=== PATIENT | male | born 1990 | race Caucasian/White ===

== ENCOUNTER 2019-05-26 14:02 | Outpatient (CLI) | payer OTHER, SELFPAY ==
[2019-05-26 14:17] LABS: Basophils Absolute Auto 0.04 K/mm3 (0.00-0.10); Basophils Percent Auto 0.8 % (0.0-1.0); Eosinophils Percent Auto 8.2 % (1.0-6.0); Hematocrit 40.1 % (40.0-54.0); Hemoglobin 14.6 g/dL (14.0-18.0); Immature Granulocyte Absolute 0.02 K/mm3 (0.00-0.00); Immature Granulocyte Percent A 0.4 % (0.0-0.0); Lymphocytes Absolute Auto 1.21 K/mm3 (1.10-4.50); Lymphocytes Percent Auto 24.8 % (18.0-42.0); Mean Corpuscular HGB Conc 36.4 g/dL (32.0-36.0); Mean Corpuscular Hemoglobin 31.1 pg (27.0-31.0); Mean Corpuscular Volume 85.3 fL (78.0-102.0); Mean Platelet Volume 10.2 fl (8.7-11.0); Monocytes Percent Auto 8.2 % (2.0-11.0); Neutrophils Absolute Auto 2.8 K/mm3 (1.7-7.2); Neutrophils Percent Auto 57.6 % (50.0-70.0); Platelet Count Result 191 K/mm3 (150-420); Red Cell Distribution Width 11.7 % (11.6-14.4); White Blood Count 4.9 K/mm3 (4.8-10.8)
[2019-05-26 14:47] LABS: Creatinine Urine 111.04 mg/dL (40-278)
[2019-05-26 14:48] LABS: MALB Creatinine Ratio 213.3 mg/g (0-30); Microalbumin Urine Random 236.9 mg/L
[2019-05-26 15:10] LABS: Albumin Level 3.8 g/dL (3.4-5.0); Anion Gap 11.7 mmol/L (7-16); Blood Urea Nitrogen 41 mg/dL (7-18); Calcium 9.2 mg/dL (8.5-10.1); Carbon Dioxide 27 mmol/L (21-32); Chloride 105 mmol/L (98-108); Cholesterol 278 mg/dL (0-200); Estimated Glomerular Filt Rate 34; Glucose 83 mg/dL (70-99); HDL Direct 62 mg/dL (40-60); LDL Cholesterol Calculated 196 mg/dL (<130); Osmolality Calculated 295 mOsm/kg (285-295); Phosphorus 3.9 mg/dL (2.6-4.7); Potassium 5.7 mmol/L (3.5-5.1); Sodium 138 mmol/L (136-145); Triglycerides 101 mg/dL (0-150)
[2019-05-30 12:42] LABS: Parathyroid Intact 56 pg/mL (14-64)
== END 2019-05-26 14:03 | disposition home or self-care (01) ==
DX: N18.3 Chronic kidney disease, stage 3 (moderate) (principal)
CPT/HCPCS: 36415; 80061; 80069; 82043; 83970; 85025

== ENCOUNTER 2019-06-28 16:45 | Outpatient (CLI) | payer OTHER, SELFPAY ==
[2019-06-28 17:52] LABS: Anion Gap 11.6 mmol/L (7-16); Blood Urea Nitrogen 38 mg/dL (7-18); Calcium 9.1 mg/dL (8.5-10.1); Carbon Dioxide 30 mmol/L (21-32); Chloride 105 mmol/L (98-108); Estimated Glomerular Filt Rate 37; Glucose 81 mg/dL (70-99); Osmolality Calculated 302 mOsm/kg (285-295); Potassium 4.6 mmol/L (3.5-5.1); Sodium 142 mmol/L (136-145)
== END 2019-06-28 16:46 | disposition home or self-care (01) ==
DX: N02.8 Recurrent and persistent hematuria with other morphologic changes (principal)
CPT/HCPCS: 36415; 80048

== ENCOUNTER 2020-03-13 12:44 | Outpatient (CLI) | payer OTHER, SELFPAY ==
[2020-03-13 13:07] LABS: Hematocrit 39.2 % (40.0-54.0); Hemoglobin 13.7 g/dL (14.0-18.0); Mean Corpuscular HGB Conc 34.9 g/dL (32.0-36.0); Mean Corpuscular Hemoglobin 30.5 pg (27.0-31.0); Mean Corpuscular Volume 87.3 fL (78.0-102.0); Platelet Count Result 164 K/mm3 (150-420); Red Blood Count 4.49 M/mm3 (4.70-6.10); Red Cell Distribution Width 11.4 % (11.6-14.4); White Blood Count 4.7 K/mm3 (4.8-10.8)
[2020-03-13 13:11] LABS: Add Urine Microscopic? YES; Appearance Urine Clear (Clear); Bilirubin Urine Negative (Negative); Blood Urine 2+ (Negative); Color Urine Yellow (Yellow); Glucose Urine UA Negative (Negative); Ketones Urine Negative (Negative); Leukocyte Esterase Ur Negative LEU/UL (Negative); Nitrate Urine Negative (Negative); Protein Urine 2+ (Negative); Urobilinogen Urine 0.2 mg/dL (0.2-1.0)
[2020-03-13 13:18] LABS: WBC Urine 0-3 /hpf (0-3)
[2020-03-13 13:19] LABS: Bacteria Urine None seen /hpf
[2020-03-13 13:27] LABS: Creatinine Urine 92.26 mg/dL (40-278); Ur Ttl Prot Creatinine Ratio 2.57 mg/mg (0-0.20)
[2020-03-13 13:31] LABS: Band Neutrophils Percent 0 % (0-6); Basophils Absolute Manual 0.04 K/mm3 (0-0.1); Basophils Percent Manual 1 % (0-1); Eosinophils Absolute Manual 0.42 K/mm3 (0.02-0.5); Eosinophils Percent Manual 9 % (1-6); Lymphocytes Absolute Manual 1.08 K/mm3 (1.1-4.5); Lymphocytes Percent Manual 23 % (18-44); Monocytes Absolute Manual 0.23 K/mm3 (0.1-0.90); Monocytes Percent Manual 5 % (3-9); Neutrophils Absolute Manual 2.91 K/mm3 (1.3-6.7); Neutrophils Percent Manual 62 % (46-73); Total Cells Counted 100
[2020-03-13 13:32] LABS: Platelet Estimate Adequate (Adequate)
[2020-03-13 13:42] LABS: Albumin Level 3.5 g/dL (3.4-5.0); Anion Gap 9 mmol/L (8-16); Blood Urea Nitrogen 25 mg/dL (7-18); Calcium 9.1 mg/dL (8.5-10.1); Carbon Dioxide 28 mmol/L (21-32); Chloride 103 mmol/L (98-108); Estimated Glomerular Filt Rate 34; Glucose 91 mg/dL (70-99); Osmolality Calculated 294 mOsm/kg (285-295); Phosphorus 3.6 mg/dL (2.6-4.7); Potassium 4.4 mmol/L (3.5-5.1); Sodium 140 mmol/L (136-145)
[2020-03-15 13:38] LABS: Parathyroid Intact 56 pg/mL (14-64)
[2020-03-19 02:02] LABS: Vitamin D 25 Hydroxy 29 ng/mL (30-100)
== END 2020-03-13 12:45 | disposition home or self-care (01) ==
LOC: CHSLAB 12:54
DX: N02.8 Recurrent and persistent hematuria with other morphologic changes (principal); I10 Essential (primary) hypertension; R80.1 Persistent proteinuria, unspecified; E55.9 Vitamin D deficiency, unspecified
CPT/HCPCS: 36415; 80069; 81001; 82306; 82570; 83970; 84156; 85025

== ENCOUNTER 2020-04-25 11:55 | Outpatient (CLI) | payer OTHER, SELFPAY ==
[2020-04-25 12:14] LABS: Creatinine Urine 107.17 mg/dL (40-278); Ur Ttl Prot Creatinine Ratio 0.86 mg/mg (0-0.20)
[2020-04-25 13:33] LABS: Albumin Level 3.8 g/dL (3.4-5.0); Anion Gap 8 mmol/L (8-16); Blood Urea Nitrogen 38 mg/dL (7-18); Calcium 9.1 mg/dL (8.5-10.1); Carbon Dioxide 30 mmol/L (21-32); Chloride 104 mmol/L (98-108); Estimated Glomerular Filt Rate 34; Glucose 80 mg/dL (70-99); Osmolality Calculated 302 mOsm/kg (285-295); Phosphorus 3.9 mg/dL (2.6-4.7); Potassium 4.7 mmol/L (3.5-5.1); Sodium 142 mmol/L (136-145)
== END 2020-04-25 11:56 | disposition home or self-care (01) ==
DX: N02.8 Recurrent and persistent hematuria with other morphologic changes (principal); R80.8 Other proteinuria; N18.32 Chronic kidney disease, stage 3b
CPT/HCPCS: 36415; 80069; 82570; 84156

== ENCOUNTER 2020-11-13 15:02 | Outpatient (CLI) | payer OTHER, SELFPAY ==
[2020-11-13 15:21] LABS: Add Urine Microscopic? YES; Appearance Urine Clear (Clear); Bilirubin Urine Negative (Negative); Blood Urine 2+ (Negative); Color Urine Light Yellow (Yellow); Glucose Urine UA Negative (Negative); Hematocrit 35.1 % (40.0-54.0); Hemoglobin 12.4 g/dL (14.0-18.0); Ketones Urine Negative (Negative); Leukocyte Esterase Ur Negative (Negative); Mean Corpuscular HGB Conc 35.3 g/dL (32.0-36.0); Mean Corpuscular Hemoglobin 30.9 pg (27.0-31.0); Mean Corpuscular Volume 87.5 fL (78.0-102.0); Mean Platelet Volume 9.6 fl (8.7-11.0); Nitrate Urine Negative (Negative); Platelet Count Result 149 K/mm3 (150-420); Protein Urine 2+ (Negative); Red Blood Count 4.01 M/mm3 (4.70-6.10); Red Cell Distribution Width 11.2 % (11.6-14.4); Specific Grav Ur >= 1.030 (1.010-1.020); Urobilinogen Urine 0.2 mg/dL (0.2-1.0); White Blood Count 5.2 K/mm3 (4.8-10.8); pH Urine 5.5 (5.0-8.0)
[2020-11-13 15:29] LABS: Ur Ttl Prot Creatinine Ratio 1.07 mg/mg (0-0.20)
[2020-11-13 15:37] LABS: WBC Urine None seen /hpf (0-3)
[2020-11-13 15:42] LABS: Squamous Epithelial Cell Urine Rare /hpf (Few)
[2020-11-13 15:43] LABS: Bacteria Urine Trace /hpf
[2020-11-13 15:51] LABS: Albumin Level 3.7 g/dL (3.4-5.0); Anion Gap 8 mmol/L (8-16); Band Neutrophils Percent 0 % (0-6); Basophils Percent Manual 0 % (0-1); Blood Urea Nitrogen 36 mg/dL (7-18); Calcium 8.7 mg/dL (8.5-10.1); Carbon Dioxide 27 mmol/L (21-32); Chloride 106 mmol/L (98-108); Eosinophils Absolute Manual 0.67 K/mm3 (0.02-0.5); Eosinophils Percent Manual 13 % (1-6); Estimated Glomerular Filt Rate 37; Glucose 83 mg/dL (70-99); Lymphocytes Absolute Manual 1.35 K/mm3 (1.1-4.5); Lymphocytes Percent Manual 26 % (18-44); Monocytes Percent Manual 4 % (3-9); Neutrophils Absolute Manual 2.96 K/mm3 (1.3-6.7); Neutrophils Percent Manual 57 % (46-73); Osmolality Calculated 299 mOsm/kg (285-295); Phosphorus 4.2 mg/dL (2.6-4.7); Platelet Estimate Adequate (Adequate); Potassium 4.4 mmol/L (3.5-5.1); Sodium 141 mmol/L (136-145); Total Cells Counted 100
[2020-11-17 11:19] LABS: Parathyroid Intact 61 pg/mL (14-64)
== END 2020-11-13 15:03 | disposition home or self-care (01) ==
LOC: CHSLAB 15:10
DX: N02.8 Recurrent and persistent hematuria with other morphologic changes (principal); R80.8 Other proteinuria; N18.32 Chronic kidney disease, stage 3b; E87.5 Hyperkalemia; R80.1 Persistent proteinuria, unspecified; E55.9 Vitamin D deficiency, unspecified; Z00.00 Encounter for general adult medical examination without abnormal findings
CPT/HCPCS: 36415; 80069; 81001; 82306; 82570; 82652; 83970; 84156; 85025

== ENCOUNTER 2021-05-20 12:59 | Outpatient (CLI) | payer OTHER, SELFPAY ==
[2021-05-20 13:25] LABS: Add Urine Microscopic? YES; Appearance Urine Clear (Clear); Bilirubin Urine Negative (Negative); Blood Urine 1+ (Negative); Color Urine Yellow (Yellow); Glucose Urine UA Negative (Negative); Ketones Urine Negative (Negative); Leukocyte Esterase Ur Negative LEU/UL (Negative); Nitrate Urine Negative (Negative); Protein Urine 2+ (Negative); Urobilinogen Urine 0.2 mg/dL (0.2-1.0); pH Urine 5.5 (5.0-8.0)
[2021-05-20 13:30] LABS: Creatinine Urine 111.02 mg/dL (40-278); Total Protein Urine Random 113.3 mg/dL (0.0-11.9); Ur Ttl Prot Creatinine Ratio 1.02 mg/mg (0-0.20)
[2021-05-20 13:52] LABS: Bacteria Urine Trace /hpf; Other Sediment Urine Spermatazoa /hpf; WBC Urine None seen /hpf (0-3)
[2021-05-20 13:54] LABS: Albumin Level 3.8 g/dL (3.4-5.0); Anion Gap 9 mmol/L (8-16); Blood Urea Nitrogen 34 mg/dL (7-18); Calcium 8.9 mg/dL (8.5-10.1); Carbon Dioxide 26 mmol/L (21-32); Chloride 106 mmol/L (98-108); Estimated Glomerular Filt Rate 29; Glucose 89 mg/dL (70-99); Osmolality Calculated 298 mOsm/kg (285-295); Phosphorus 3.8 mg/dL (2.6-4.7); Potassium 5.7 mmol/L (3.5-5.1); Sodium 141 mmol/L (136-145)
[2021-05-23 14:07] LABS: Parathyroid Intact 56 pg/mL (14-64)
== END 2021-05-20 13:00 | disposition home or self-care (01) ==
LOC: CHSLAB 13:04
DX: N02.8 Recurrent and persistent hematuria with other morphologic changes (principal)
CPT/HCPCS: 36415; 80069; 81001; 82570; 83970; 84156

== ENCOUNTER 2021-06-03 11:00 | Outpatient (CLI) | payer OTHER, SELFPAY ==
[2021-06-03 11:13] LABS: Basophils Absolute Auto 0.04 K/mm3 (0.00-0.10); Basophils Percent Auto 0.9 % (0.0-1.0); Eosinophils Percent Auto 6.8 % (1.0-6.0); Hematocrit 36.6 % (40.0-54.0); Hemoglobin 12.8 g/dL (14.0-18.0); Immature Granulocyte Absolute 0.01 K/mm3 (0.00-0.00); Immature Granulocyte Percent A 0.2 % (0.0-0.0); Lymphocytes Absolute Auto 1.41 K/mm3 (1.10-4.50); Lymphocytes Percent Auto 31.8 % (18.0-42.0); Mean Corpuscular Volume 88.6 fL (78.0-102.0); Mean Platelet Volume 9.9 fl (8.7-11.0); Monocytes Absolute Auto 0.36 K/mm3 (0.10-0.90); Monocytes Percent Auto 8.1 % (2.0-11.0); Neutrophils Absolute Auto 2.3 K/mm3 (1.7-7.2); Neutrophils Percent Auto 52.2 % (50.0-70.0); Platelet Count Result 156 K/mm3 (150-420); Red Blood Count 4.13 M/mm3 (4.70-6.10); Red Cell Distribution Width 11.4 % (11.6-14.4); White Blood Count 4.4 K/mm3 (4.8-10.8)
[2021-06-03 11:19] LABS: Add Urine Microscopic? YES; Appearance Urine Clear (Clear); Bilirubin Urine Negative (Negative); Blood Urine 2+ (Negative); Color Urine Light Yellow (Yellow); Glucose Urine UA Negative (Negative); Ketones Urine Negative (Negative); Leukocyte Esterase Ur Negative (Negative); Nitrate Urine Negative (Negative); Protein Urine 2+ (Negative); Urobilinogen Urine 0.2 mg/dL (0.2-1.0)
[2021-06-03 11:27] LABS: Bacteria Urine None seen /hpf; WBC Urine None seen /hpf (0-3)
[2021-06-03 11:38] LABS: Creatinine Urine 118.75 mg/dL (40-278); Total Protein Urine Random 124.7 mg/dL (0.0-11.9); Ur Ttl Prot Creatinine Ratio 1.05 mg/mg (0-0.20)
[2021-06-03 12:02] LABS: Albumin Level 3.7 g/dL (3.4-5.0); Anion Gap 8 mmol/L (8-16); Blood Urea Nitrogen 45 mg/dL (7-18); Calcium 8.8 mg/dL (8.5-10.1); Carbon Dioxide 25 mmol/L (21-32); Chloride 104 mmol/L (98-108); Estimated Glomerular Filt Rate 29; Glucose 83 mg/dL (70-99); Osmolality Calculated 294 mOsm/kg (285-295); Potassium 4.9 mmol/L (3.5-5.1); Sodium 137 mmol/L (136-145)
== END 2021-06-03 11:01 | disposition home or self-care (01) ==
LOC: CHSLAB 11:04
DX: N02.8 Recurrent and persistent hematuria with other morphologic changes (principal)
CPT/HCPCS: 36415; 80069; 81001; 82570; 84156; 85025

== ENCOUNTER 2021-06-28 15:35 | Outpatient (CLI) | payer OTHER, SELFPAY ==
[2021-06-28 15:55] LABS: Basophils Absolute Auto 0.04 K/mm3 (0.00-0.10); Basophils Percent Auto 0.9 % (0.0-1.0); Eosinophils Absolute Auto 0.35 K/mm3 (0.02-0.50); Eosinophils Percent Auto 8.2 % (1.0-6.0); Hematocrit 36.3 % (40.0-54.0); Hemoglobin 12.7 g/dL (14.0-18.0); Immature Granulocyte Absolute 0.03 K/mm3 (0.00-0.00); Immature Granulocyte Percent A 0.7 % (0.0-0.0); Lymphocytes Absolute Auto 1.32 K/mm3 (1.10-4.50); Lymphocytes Percent Auto 30.8 % (18.0-42.0); Mean Corpuscular Hemoglobin 30.9 pg (27.0-31.0); Mean Corpuscular Volume 88.3 fL (78.0-102.0); Mean Platelet Volume 9.7 fl (8.7-11.0); Monocytes Absolute Auto 0.29 K/mm3 (0.10-0.90); Monocytes Percent Auto 6.8 % (2.0-11.0); Neutrophils Absolute Auto 2.3 K/mm3 (1.7-7.2); Neutrophils Percent Auto 52.6 % (50.0-70.0); Platelet Count Result 172 K/mm3 (150-420); Red Blood Count 4.11 M/mm3 (4.70-6.10); Red Cell Distribution Width 11.6 % (11.6-14.4); White Blood Count 4.3 K/mm3 (4.8-10.8)
[2021-06-28 16:09] LABS: Albumin Level 3.3 g/dL (3.4-5.0); Anion Gap 6 mmol/L (8-16); Blood Urea Nitrogen 35 mg/dL (7-18); Calcium 8.8 mg/dL (8.5-10.1); Carbon Dioxide 29 mmol/L (21-32); Chloride 104 mmol/L (98-108); Estimated Glomerular Filt Rate 32; Glucose 73 mg/dL (70-99); Osmolality Calculated 295 mOsm/kg (285-295); Phosphorus 3.7 mg/dL (2.6-4.7); Potassium 5.2 mmol/L (3.5-5.1); Sodium 139 mmol/L (136-145)
[2021-06-28 16:11] LABS: Partial Thromboplastin Time 25.9 SEC (23.90-30.70); Prothrombin Time 10.9 Seconds (9.50-12.10)
[2021-06-28 16:30] LABS: SARS-CoV-2 RNA PCR Negative (Negative)
[2021-07-03 15:06] LABS: Testosterone Free 105.5 pg/mL (35.0-155.0); Testosterone Total 544 ng/dL (250-1100)
== END 2021-06-28 15:36 | disposition home or self-care (01) ==
LOC: CHSLAB 15:38
DX: Z01.812 Encounter for preprocedural laboratory examination (principal); Z20.822 Contact with and (suspected) exposure to COVID-19; N02.8 Recurrent and persistent hematuria with other morphologic changes; R80.1 Persistent proteinuria, unspecified; N18.32 Chronic kidney disease, stage 3b; E87.5 Hyperkalemia; R86.1 Abnormal level of hormones in specimens from male genital organs; D63.1 Anemia in chronic kidney disease
CPT/HCPCS: 36415; 80069; 84402; 84403; 85025; 85610; 85730; C9803; U0003; U0005

== ENCOUNTER 2021-08-14 16:19 | Outpatient (CLI) | payer OTHER, SELFPAY ==
[2021-08-14 16:41] LABS: Hematocrit 37.9 % (40.0-54.0); Hemoglobin 12.9 g/dL (14.0-18.0); Mean Corpuscular Hemoglobin 30.7 pg (27.0-31.0); Mean Corpuscular Volume 90.2 fL (78.0-102.0); Mean Platelet Volume 10.4 fl (8.7-11.0); Platelet Count Result 175 K/mm3 (150-420); Red Cell Distribution Width 11.7 % (11.6-14.4); White Blood Count 5.7 K/mm3 (4.8-10.8)
[2021-08-14 16:42] LABS: Add Urine Microscopic? YES; Appearance Urine Clear (Clear); Bilirubin Urine Negative (Negative); Blood Urine 2+ (Negative); Color Urine Light Yellow (Yellow); Glucose Urine UA Negative (Negative); Ketones Urine Negative (Negative); Leukocyte Esterase Ur Negative LEU/UL (Negative); Nitrate Urine Negative (Negative); Protein Urine 2+ (Negative); Urobilinogen Urine 0.2 mg/dL (0.2-1.0)
[2021-08-14 16:48] LABS: Squamous Epithelial Cell Urine Rare /hpf (Few); WBC Urine None seen /hpf (0-3)
[2021-08-14 16:49] LABS: Bacteria Urine Trace /hpf
[2021-08-14 16:55] LABS: Creatinine Urine 140.86 mg/dL (40-278); Total Protein Urine Random 112.5 mg/dL (0.0-11.9)
[2021-08-14 17:10] LABS: Albumin Level 3.5 g/dL (3.4-5.0); Anion Gap 4 mmol/L (8-16); Blood Urea Nitrogen 43 mg/dL (7-18); Calcium 8.9 mg/dL (8.5-10.1); Carbon Dioxide 27 mmol/L (21-32); Chloride 104 mmol/L (98-108); Estimated Glomerular Filt Rate 22; Glucose 81 mg/dL (70-99); Osmolality Calculated 289 mOsm/kg (285-295); Phosphorus 3.8 mg/dL (2.6-4.7); Potassium 5.3 mmol/L (3.5-5.1); Sodium 135 mmol/L (136-145)
[2021-08-14 17:16] LABS: Band Neutrophils Percent 0 % (0-6); Basophils Percent Manual 0 % (0-1); Eosinophils Absolute Manual 0.74 K/mm3 (0.02-0.5); Eosinophils Percent Manual 13 % (1-6); Lymphocytes Percent Manual 37 % (18-44); Monocytes Absolute Manual 0.17 K/mm3 (0.1-0.90); Monocytes Percent Manual 3 % (3-9); Neutrophils Absolute Manual 2.67 K/mm3 (1.3-6.7); Neutrophils Percent Manual 47 % (46-73); Platelet Estimate Adequate (Adequate); Total Cells Counted 100
== END 2021-08-14 16:20 | disposition home or self-care (01) ==
LOC: CHSLAB 16:27
DX: N02.8 Recurrent and persistent hematuria with other morphologic changes (principal); N18.32 Chronic kidney disease, stage 3b; R80.1 Persistent proteinuria, unspecified; E87.5 Hyperkalemia
CPT/HCPCS: 36415; 80069; 81001; 82570; 84156; 85025

== ENCOUNTER 2021-10-21 11:37 | Outpatient (CLI) | payer OTHER, SELFPAY ==
[2021-10-21 12:33] LABS: Hematocrit 34.6 % (40.0-54.0); Mean Corpuscular HGB Conc 34.7 g/dL (32.0-36.0); Mean Corpuscular Hemoglobin 30.8 pg (27.0-31.0); Mean Corpuscular Volume 88.7 fL (78.0-102.0); Mean Platelet Volume 10.6 fl (8.7-11.0); Platelet Count Result 154 K/mm3 (150-420); White Blood Count 5.7 K/mm3 (4.8-10.8)
[2021-10-24 18:27] LABS: Vitamin D 25 Hydroxy 30 ng/mL (30-100)
[2021-10-26 14:23] LABS: Parathyroid Intact 40 pg/mL (14-64)
== END 2021-10-21 11:38 | disposition home or self-care (01) ==
DX: N02.8 Recurrent and persistent hematuria with other morphologic changes (principal); N18.32 Chronic kidney disease, stage 3b
CPT/HCPCS: 36415; 82306; 83970; 85027

== ENCOUNTER 2022-02-27 11:48 | Outpatient (CLI) | payer OTHER, SELFPAY ==
[2022-02-27 12:12] LABS: Add Urine Microscopic? YES; Appearance Urine Clear (Clear); Basophils Absolute Auto 0.04 K/mm3 (0.00-0.10); Basophils Percent Auto 0.8 % (0.0-1.0); Bilirubin Urine Negative (Negative); Blood Urine 2+ (Negative); Color Urine Light Yellow (Yellow); Eosinophils Absolute Auto 0.19 K/mm3 (0.02-0.50); Eosinophils Percent Auto 3.9 % (1.0-6.0); Glucose Urine UA Negative (Negative); Hematocrit 36.1 % (40.0-54.0); Hemoglobin 12.5 g/dL (14.0-18.0); Immature Granulocyte Absolute 0.02 K/mm3 (0.00-0.00); Immature Granulocyte Percent A 0.4 % (0.0-0.0); Ketones Urine Negative (Negative); Leukocyte Esterase Ur Negative (Negative); Lymphocytes Absolute Auto 0.88 K/mm3 (1.10-4.50); Lymphocytes Percent Auto 18.1 % (18.0-42.0); Mean Corpuscular HGB Conc 34.6 g/dL (32.0-36.0); Mean Corpuscular Hemoglobin 30.9 pg (27.0-31.0); Mean Corpuscular Volume 89.4 fL (78.0-102.0); Monocytes Absolute Auto 0.23 K/mm3 (0.10-0.90); Monocytes Percent Auto 4.7 % (2.0-11.0); Neutrophils Absolute Auto 3.5 K/mm3 (1.7-7.2); Neutrophils Percent Auto 72.1 % (50.0-70.0); Nitrate Urine Negative (Negative); Platelet Count Result 141 K/mm3 (150-420); Protein Urine 2+ (Negative); Red Blood Count 4.04 M/mm3 (4.70-6.10); Red Cell Distribution Width 11.8 % (11.6-14.4); Specific Grav Ur 1.015 (1.010-1.020); Urobilinogen Urine 0.2 mg/dL (0.2-1.0); White Blood Count 4.9 K/mm3 (4.8-10.8)
[2022-02-27 12:17] LABS: Creatinine Urine 89.77 mg/dL (40-278); Total Protein Urine Random 151.6 mg/dL (0.0-11.9); Ur Ttl Prot Creatinine Ratio 1.69 mg/mg (0-0.20)
[2022-02-27 12:19] LABS: Bacteria Urine None seen /hpf; Squamous Epithelial Cell Urine Rare /hpf (Few); WBC Urine None seen /hpf (0-3)
[2022-02-27 13:09] LABS: Albumin Level 3.5 g/dL (3.4-5.0); Anion Gap 5 mmol/L (8-16); Blood Urea Nitrogen 38 mg/dL (7-18); Calcium 8.4 mg/dL (8.5-10.1); Carbon Dioxide 29 mmol/L (21-32); Chloride 106 mmol/L (98-108); Estimated Glomerular Filt Rate 26; Glucose 81 mg/dL (70-99); Osmolality Calculated 298 mOsm/kg (285-295); Phosphorus 2.8 mg/dL (2.6-4.7); Sodium 140 mmol/L (136-145)
== END 2022-02-27 11:49 | disposition home or self-care (01) ==
LOC: CHSLAB 11:54
DX: N02.8 Recurrent and persistent hematuria with other morphologic changes (principal); N18.32 Chronic kidney disease, stage 3b; R80.1 Persistent proteinuria, unspecified; E87.5 Hyperkalemia
CPT/HCPCS: 36415; 80069; 81001; 82570; 84156; 85025

== ENCOUNTER 2022-04-25 11:28 | Outpatient (CLI) | payer OTHER, SELFPAY ==
[2022-04-25 12:16] LABS: Basophils Absolute Auto 0.04 K/mm3 (0.00-0.10); Basophils Percent Auto 0.8 % (0.0-1.0); Eosinophils Absolute Auto 0.19 K/mm3 (0.02-0.50); Eosinophils Percent Auto 3.8 % (1.0-6.0); Hematocrit 37.4 % (40.0-54.0); Hemoglobin 12.9 g/dL (14.0-18.0); Immature Granulocyte Absolute 0.02 K/mm3 (0.00-0.00); Immature Granulocyte Percent A 0.4 % (0.0-0.0); Lymphocytes Absolute Auto 1.16 K/mm3 (1.10-4.50); Mean Corpuscular HGB Conc 34.5 g/dL (32.0-36.0); Mean Corpuscular Hemoglobin 31.1 pg (27.0-31.0); Mean Corpuscular Volume 90.1 fL (78.0-102.0); Mean Platelet Volume 10.7 fl (8.7-11.0); Monocytes Absolute Auto 0.23 K/mm3 (0.10-0.90); Monocytes Percent Auto 4.6 % (2.0-11.0); Neutrophils Absolute Auto 3.4 K/mm3 (1.7-7.2); Neutrophils Percent Auto 67.4 % (50.0-70.0); Platelet Count Result 167 K/mm3 (150-420); Red Blood Count 4.15 M/mm3 (4.70-6.10); Red Cell Distribution Width 11.4 % (11.6-14.4); White Blood Count 5.1 K/mm3 (4.8-10.8)
[2022-04-25 12:22] LABS: Creatinine Urine 110.58 mg/dL (40-278); Total Protein Urine Random 49.1 mg/dL (0.0-11.9); Ur Ttl Prot Creatinine Ratio 0.44 mg/mg (0-0.20)
[2022-04-25 12:51] LABS: Albumin Level 3.6 g/dL (3.4-5.0); Anion Gap 5 mmol/L (8-16); Blood Urea Nitrogen 58 mg/dL (7-18); Calcium 8.7 mg/dL (8.5-10.1); Carbon Dioxide 28 mmol/L (21-32); Chloride 107 mmol/L (98-108); Cholesterol 307 mg/dL (0-200); Estimated Glomerular Filt Rate 22; Glucose 82 mg/dL (70-99); HDL Direct 68 mg/dL (40-60); LDL Cholesterol Calculated 218 mg/dL (<130); Osmolality Calculated 305 mOsm/kg (285-295); Phosphorus 3.4 mg/dL (2.6-4.7); Potassium 5.4 mmol/L (3.5-5.1); Sodium 140 mmol/L (136-145); Triglycerides 106 mg/dL (0-150)
[2022-04-29 20:38] LABS: Parathyroid Intact 54 pg/mL (14-64)
== END 2022-04-25 11:29 | disposition home or self-care (01) ==
LOC: CHSLAB 11:33
DX: N02.8 Recurrent and persistent hematuria with other morphologic changes (principal); N18.32 Chronic kidney disease, stage 3b; R80.1 Persistent proteinuria, unspecified; E78.2 Mixed hyperlipidemia; E87.5 Hyperkalemia
CPT/HCPCS: 36415; 80061; 80069; 82570; 83970; 84156; 85025

== ENCOUNTER 2022-05-13 14:14 | Emergency (ER) | payer OTHER, SELFPAY ==
--- NOTE | ~2022-05-13 | US_ITS ---
EXAMINATION: US venous doppler LE RT DATE: 05/13/2022 15:07 INDICATION: Right lower limb pain. TECHNIQUE: Grayscale ultrasound images without and with compression and Doppler ultrasound images of the right lower extremity veins were obtained. COMPARISON: Ultrasound 01/20/2019 FINDINGS: The visualized portions of right common femoral vein, profunda (deep) femoral vein, femoral vein, pop liteal vein, peroneal veins, and posterior tibial veins are patent. There is thrombus in right greate r saphenous vein. IMPRESSION: 1. No deep venous thrombosis. 2. Thrombus in right greater saphenous vein, which is a superficial vein. Reviewed, dictated and finalized at location A. OTIC AND PROSTHETIC TECHNICIAN
[2022-05-13 14:38] VITALS: BP 124/92; PULSE 84; RESP 14; TEMP 36.9; O2SAT 100
--- NOTE | 2022-05-13 17:26 | ED.EXTPRO ---
HPI - Extremity Problem General Chief complaint: Extremity Problem,Nontraumatic Stated complaint: pain behind knee/hx dvt Time Seen by Provider: 05/13/22 16:36 History of Present Illness HPI Narrative: Patient is a 31-year-old male here for evaluation of right lower extremity pain x 3 days. States the pain is concentrated near his popliteal fossa. He denies any swelling or redness to the extremity. Has not attempted any pain medicine. 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 No chest pain or shortness of breath. Related Data Allergies Allergy/AdvReac Type Severity Reaction Status Date / Time Penicillins Allergy Intermediate Verified 11/16/12 15:08 Review of Systems Review of Systems: Gen.: Denies fevers or chills Eyes: Denies eye pain or visual change ENT: Denies congestion Respiratory: Denies shortness of breath or cough CV: Denies chest pain or palpitations GI: Denies abdominal pain nausea, emesis or diarrhea denies burning, urgency, frequency or hematuria Musculoskeletal: reports pain in right leg Neuro: Denies numbness, tingling, weakness or focal weakness Skin: Denies rash Except as documented, all other systems reviewed and negative [facility] Family History Family History (Updated 03/27/14 @ 00:00 by CONVUSER A) Father Family history of type 2 diabetes mellitus Social History Social History Smoking status: Never smoker Exam Narrative: APPEARANCE: Well appearing, no pain in distress, well-nourished. Head: Normocephalic and atraumatic. EYES: PERRLA/EOMI, conjunctivae clear NOSE: No nasal drainage EARS: External ear normal in appearance THROAT: Oropharynx is clear. Mucous membranes are moist. NECK: Supple. No adenopathy, no masses. RESPIRATORY: Airway patent, respirations nonlabored. Clear to auscultation bilaterally, no rales, rhonchi, wheezing. CARDIOVASCULAR: 2+dp/pt pulses bilaterally. Regular rate and rhythm without murmurs, rubs, or gallops. ABDOMINAL: Normoactive bowel sounds. Soft, nontender, nondistended. No rebound tenderness or guarding. MUSCULOSKELETAL: FROM in right foot. No redness or swelling noted to lower extremity. No tenderness to palpation to RLE. No edema. NEURO: Normal speech. No focal neurologic deficits. SKIN: Skin is warm and dry. No rashes. PSYCHIATRIC: Normal affect/mood. Course Vital Signs Vital signs: Vital Signs Temperature 98.5 F 05/13/22 14:38 Pulse Rate 84 05/13/22 14:38 Respiratory Rate 14 05/13/22 14:38 Blood Pressure 124/92 H 05/13/22 14:38 Pulse Oximetry 100 05/13/22 14:38 Oxygen Delivery Room Air 05/13/22 14:38 Temperature 98.5 F 05/13/22 14:38 Pulse Rate 84 05/13/22 14:38 Respiratory Rate 14 05/13/22 14:38 Blood Pressure 124/92 H 05/13/22 14:38 Pulse Oximetry 100 05/13/22 14:38 Oxygen Delivery Room Air 05/13/22 14:38 MDM - Extremity (Nontraumatic) MDM Narrative Medical decision making narrative: 31 year old male here for evaluation of pain in his right popliteal fossa over the past several days. He is nontoxic in appearance, and the extremity has no gross abnormalities and strong peripheral pulses. His compartments are soft. He has evidence of superficial venous thrombosis in the greater saphenous vein but no DVT on the ultrasound. No need to anticoagulate at this time but he is high risk given previous DVT and current thrombus' proximity to SFJ. By current recommendations will order US for follow up in 1 week. Patient does not have PCP, will send referral for PCP for patient to follow up with after US. Return precautions were discussed and he voiced understanding. Discharge Plan Discharge Clinical Impression: Superficial vein thrombosis Patient Disposition: Home, Self-Care Condition: Stable Instructions: Antibiotic Form, Leg Pain (ED) Additional Instructions: You were found to have a small blood clot in a superficial vein in your leg. You will need to have a re
== END 2022-05-13 18:20 | disposition home or self-care (01) ==
PROVIDERS: Emergency Provider Physician Assistant
DX: I82.811 Embolism and thrombosis of superficial veins of right lower extremity (principal); M79.661 Pain in right lower leg; Z86.718 Personal history of other venous thrombosis and embolism
CPT/HCPCS: 93971; 99284

== ENCOUNTER 2022-05-22 14:05 | Outpatient (CLI) | payer OTHER, SELFPAY ==
[2022-05-22 14:23] LABS: Basophils Absolute Auto 0.06 K/mm3 (0.00-0.10); Basophils Percent Auto 0.9 % (0.0-1.0); Eosinophils Absolute Auto 0.21 K/mm3 (0.02-0.50); Hematocrit 37.7 % (40.0-54.0); Immature Granulocyte Absolute 0.04 K/mm3 (0.00-0.00); Immature Granulocyte Percent A 0.6 % (0.0-0.0); Lymphocytes Absolute Auto 1.17 K/mm3 (1.10-4.50); Mean Corpuscular HGB Conc 34.5 g/dL (32.0-36.0); Mean Corpuscular Hemoglobin 30.8 pg (27.0-31.0); Mean Corpuscular Volume 89.3 fL (78.0-102.0); Mean Platelet Volume 9.8 fl (8.7-11.0); Monocytes Absolute Auto 0.33 K/mm3 (0.10-0.90); Monocytes Percent Auto 4.8 % (2.0-11.0); Neutrophils Absolute Auto 5.1 K/mm3 (1.7-7.2); Neutrophils Percent Auto 73.7 % (50.0-70.0); Platelet Count Result 182 K/mm3 (150-420); Red Blood Count 4.22 M/mm3 (4.70-6.10); Red Cell Distribution Width 11.7 % (11.6-14.4); White Blood Count 6.9 K/mm3 (4.8-10.8)
[2022-05-22 14:28] LABS: Creatinine Urine 84.04 mg/dL (40-278); Ur Ttl Prot Creatinine Ratio 0.57 mg/mg (0-0.20)
[2022-05-22 14:54] LABS: Albumin Level 3.5 g/dL (3.4-5.0); Anion Gap 9 mmol/L (8-16); Blood Urea Nitrogen 63 mg/dL (7-18); Calcium 6.4 mg/dL (8.5-10.1); Carbon Dioxide 26 mmol/L (21-32); Chloride 106 mmol/L (98-108); Cholesterol 271 mg/dL (0-200); Estimated Glomerular Filt Rate 25; Glucose 88 mg/dL (70-99); HDL Direct 71 mg/dL (40-60); LDL Cholesterol Calculated 184 mg/dL (<130); Osmolality Calculated 309 mOsm/kg (285-295); Phosphorus 3.7 mg/dL (2.6-4.7); Potassium 5.9 mmol/L (3.5-5.1); Sodium 141 mmol/L (136-145); Triglycerides 78 mg/dL (0-150)
== END 2022-05-22 14:06 | disposition home or self-care (01) ==
LOC: CHSLAB 14:08
DX: N02.8 Recurrent and persistent hematuria with other morphologic changes (principal); N18.32 Chronic kidney disease, stage 3b; R80.1 Persistent proteinuria, unspecified; E78.2 Mixed hyperlipidemia; E87.5 Hyperkalemia
CPT/HCPCS: 36415; 80061; 80069; 82570; 84156; 85025

== ENCOUNTER 2022-05-29 14:31 | Outpatient (CLI) | payer OTHER, SELFPAY ==
[2022-05-29 15:04] LABS: Anion Gap 7 mmol/L (8-16); Blood Urea Nitrogen 53 mg/dL (7-18); Calcium 8.7 mg/dL (8.5-10.1); Carbon Dioxide 27 mmol/L (21-32); Chloride 107 mmol/L (98-108); Estimated Glomerular Filt Rate 30; Glucose 95 mg/dL (70-99); Osmolality Calculated 306 mOsm/kg (285-295); Potassium 4.8 mmol/L (3.5-5.1); Sodium 141 mmol/L (136-145)
[2022-05-31 20:46] LABS: Ionized Calcium 4.9 mg/dL (4.7-5.5)
== END 2022-05-29 14:32 | disposition home or self-care (01) ==
LOC: CHSLAB 14:35
DX: N02.8 Recurrent and persistent hematuria with other morphologic changes (principal); N18.32 Chronic kidney disease, stage 3b; E87.5 Hyperkalemia
CPT/HCPCS: 36415; 80048; 82330

== ENCOUNTER 2022-06-05 09:57 | Outpatient (CLI) | payer OTHER, SELFPAY ==
--- NOTE | ~2022-06-05 | US_ITS ---
EXAMINATION: US venous doppler [facility] DATE: 06/05/2022 11:20 INDICATION: Bilateral lower limb pain TECHNIQUE: Mike scale images without and with compression and Doppler images of the bilateral lower e xtremity veins were obtained. COMPARISON: 05/13/2022 FINDINGS: The right common femoral vein, profunda femoral vein, femoral vein, popliteal vein, peroneal trunk, a nd posterior tibial veins are patent. There is persistent thrombosis in the right greater saphenous v ein. The left common femoral vein, profunda femoral vein, femoral vein, popliteal vein, peroneal trunk, po sterior tibial veins, and greater saphenous vein are patent. IMPRESSION: 1. No evidence of deep venous thrombosis. 2. Persistent thrombus in the right greater saphenous vein, a superficial vein. Reviewed, dictated and finalized at location L.
== END 2022-06-05 09:58 | disposition home or self-care (01) ==
PROVIDERS: PCP Emergency Medicine; Visit Provider Emergency Medicine
DX: I82.811 Embolism and thrombosis of superficial veins of right lower extremity (principal)
CPT/HCPCS: 93970

== ENCOUNTER 2022-08-25 12:26 | Outpatient (CLI) | payer OTHER, SELFPAY ==
[2022-08-25 12:52] LABS: Appearance Urine Clear (Clear); Bilirubin Urine Negative (Negative); Blood Urine 1+ (Negative); Color Urine Light Yellow (Yellow); Creatinine Urine 82.36 mg/dL (40-278); Glucose Urine UA Negative (Negative); Ketones Urine Negative (Negative); Leukocyte Esterase Ur Trace LEU/UL (Negative); Nitrate Urine Negative (Negative); Protein Urine 3+ (Negative); Total Protein Urine Random 220.9 mg/dL (0.0-11.9); Ur Ttl Prot Creatinine Ratio 2.68 mg/mg (0-0.20); Urobilinogen Urine 0.2 mg/dL (0.2-1.0)
[2022-08-25 13:11] LABS: Add Urine Microscopic? NO; RBC Urine None seen /hpf (0-2); WBC Urine 0-3 /hpf (0-3)
[2022-08-25 13:12] LABS: Bacteria Urine Rare /hpf; Other Sediment Urine Spermatazoa /hpf
[2022-08-25 13:23] LABS: Hematocrit 38.8 % (40.0-54.0); Hemoglobin 13.3 g/dL (14.0-18.0); Mean Corpuscular HGB Conc 34.3 g/dL (32.0-36.0); Mean Corpuscular Hemoglobin 30.9 pg (27.0-31.0); Mean Platelet Volume 10.7 fl (8.7-11.0); Platelet Count Result 166 K/mm3 (150-420); Red Blood Count 4.31 M/mm3 (4.70-6.10); Red Cell Distribution Width 11.3 % (11.6-14.4)
[2022-08-25 13:31] LABS: Albumin Level 3.3 g/dL (3.4-5.0); Anion Gap 9 mmol/L (8-16); Blood Urea Nitrogen 54 mg/dL (7-18); Calcium 8.8 mg/dL (8.5-10.1); Carbon Dioxide 26 mmol/L (21-32); Chloride 108 mmol/L (98-108); Estimated Glomerular Filt Rate 25; Osmolality Calculated 307 mOsm/kg (285-295); Phosphorus 3.6 mg/dL (2.6-4.7); Potassium 5.3 mmol/L (3.5-5.1); Sodium 143 mmol/L (136-145)
[2022-08-25 13:43] LABS: Glucose 50 mg/dL (70-99)
[2022-08-25 14:03] LABS: Band Neutrophils Percent 0 % (0-6); Basophils Percent Manual 0 % (0-1); Eosinophils Absolute Manual 0.55 K/mm3 (0.02-0.5); Eosinophils Percent Manual 11 % (1-6); Lymphocytes Absolute Manual 1.45 K/mm3 (1.1-4.5); Lymphocytes Percent Manual 29 % (18-44); Monocytes Percent Manual 8 % (3-9); Neutrophils Percent Manual 52 % (46-73); Platelet Estimate Adequate (Adequate); Total Cells Counted 100
[2022-08-28 20:01] LABS: Parathyroid Intact 82 pg/mL (14-64)
== END 2022-08-25 12:27 | disposition home or self-care (01) ==
LOC: CHSLAB 12:30
PROVIDERS: PCP Emergency Medicine
DX: Z00.01 Encounter for general adult medical examination with abnormal findings (principal); N02.8 Recurrent and persistent hematuria with other morphologic changes; R80.1 Persistent proteinuria, unspecified; N18.32 Chronic kidney disease, stage 3b; E87.5 Hyperkalemia; E83.51 Hypocalcemia; Z13.89 Encounter for screening for other disorder; E56.9 Vitamin deficiency, unspecified
CPT/HCPCS: 36415; 80069; 81003; 82570; 83970; 84156; 85025

== ENCOUNTER 2023-01-05 13:25 | Outpatient (CLI) | payer OTHER, SELFPAY ==
[2023-01-05 13:44] LABS: Basophils Absolute Auto 0.05 K/mm3 (0.00-0.10); Basophils Percent Auto 1.1 % (0.0-1.0); Eosinophils Absolute Auto 0.27 K/mm3 (0.02-0.50); Hematocrit 32.1 % (40.0-54.0); Immature Granulocyte Absolute 0.02 K/mm3 (0.00-0.00); Immature Granulocyte Percent A 0.4 % (0.0-0.0); Lymphocytes Absolute Auto 1.07 K/mm3 (1.10-4.50); Lymphocytes Percent Auto 23.7 % (18.0-42.0); Mean Corpuscular HGB Conc 34.3 g/dL (32.0-36.0); Mean Corpuscular Volume 90.4 fL (78.0-102.0); Monocytes Absolute Auto 0.32 K/mm3 (0.10-0.90); Monocytes Percent Auto 7.1 % (2.0-11.0); Neutrophils Absolute Auto 2.8 K/mm3 (1.7-7.2); Neutrophils Percent Auto 61.7 % (50.0-70.0); Platelet Count Result 165 K/mm3 (150-420); Red Blood Count 3.55 M/mm3 (4.70-6.10); Red Cell Distribution Width 12.3 % (11.6-14.4); White Blood Count 4.5 K/mm3 (4.8-10.8)
[2023-01-05 13:45] LABS: Appearance Urine Clear (Clear); Bilirubin Urine Negative (Negative); Blood Urine 2+ (Negative); Color Urine Light Yellow (Yellow); Glucose Urine UA 3+ (Negative); Ketones Urine Negative (Negative); Leukocyte Esterase Ur Negative (Negative); Nitrate Urine Negative (Negative); Protein Urine 3+ (Negative); Urobilinogen Urine 0.2 mg/dL (0.2-1.0)
[2023-01-05 14:57] LABS: Creatinine Urine 86.94 mg/dL (40-278); Total Protein Urine Random 183.6 mg/dL (0.0-11.9); Ur Ttl Prot Creatinine Ratio 2.11 mg/mg (0-0.20)
[2023-01-05 15:01] LABS: Albumin Level 3.1 g/dL (3.4-5.0); Anion Gap 10 mmol/L (8-16); Blood Urea Nitrogen 78 mg/dL (7-18); Calcium 8.5 mg/dL (8.5-10.1); Carbon Dioxide 24 mmol/L (21-32); Chloride 109 mmol/L (98-108); Estimated Glomerular Filt Rate 14; Glucose 96 mg/dL (70-99); Osmolality Calculated 319 mOsm/kg (285-295); Phosphorus 4.8 mg/dL (2.6-4.7); Potassium 5.2 mmol/L (3.5-5.1); Sodium 143 mmol/L (136-145)
[2023-01-05 15:17] LABS: Add Urine Microscopic? YES; Bacteria Urine Rare /hpf; Squamous Epithelial Cell Urine Rare /hpf (Few); WBC Urine 0-3 /hpf (0-3)
== END 2023-01-05 13:26 | disposition home or self-care (01) ==
LOC: CHSLAB 13:31
PROVIDERS: PCP Emergency Medicine
DX: Z00.01 Encounter for general adult medical examination with abnormal findings (principal); N02.B9 Other recurrent and persistent immunoglobulin A nephropathy; R80.1 Persistent proteinuria, unspecified; N18.32 Chronic kidney disease, stage 3b; E87.5 Hyperkalemia; E83.51 Hypocalcemia
CPT/HCPCS: 36415; 80069; 81001; 82570; 84156; 85025

== ENCOUNTER 2024-01-25 07:46 | Outpatient (CLI) | payer OTHER, SELFPAY ==
--- NOTE | ~2024-01-25 | US_ITS ---
EXAMINATION: US retroperitoneal comp DATE: 01/25/2024 08:14 INDICATION: Persistent proteinuria TECHNIQUE: Multiple ultrasound grayscale images of the kidneys were obtained. COMPARISON: None. FINDINGS: The right kidney measures 9.1 x 3.1 x 5.0 cm. The left kidney measures 8.0 x 3.9 x 3.7 cm. The kidney s demonstrate normal echogenicity. 1.3 cm anechoic cyst at the upper pole of the right kidney. There is no hydronephrosis in either kidney. No stones identified. The bladder is normal. IMPRESSION: 1. 1.3 cm cyst at the upper pole the right kidney. Otherwise normal kidneys without hydronephrosis. Reviewed, dictated and finalized at location B. STRIPPER IMPRESSION: 1. 1.3 cm cyst at the upper pole the right kidney. Otherwise normal kidneys wi thout hydronephrosis.
== END 2024-01-25 07:47 | disposition home or self-care (01) ==
LOC: MICIMG 07:47
DX: N28.1 Cyst of kidney, acquired (principal); R80.1 Persistent proteinuria, unspecified
CPT/HCPCS: 76770